=== PATIENT | male | born 1945 | race American Indian/Alaskan Native ===

== ENCOUNTER 2025-02-12 14:35 | Inpatient (IN) | payer OTHER ==
[2025-02-12] VITALS (7 sets, daily range): BP systolic 59–123; BP diastolic 48–78; O2SAT 94–96
[~2025-02-12] VITALS: Ht 167.6 cm; Wt 113.4 kg
[2025-02-12] MEDS ORDERED: ATORVASTATIN CA80 MG PO (15:21)
[2025-02-12] MEDS ORDERED: GEMFIBROZIL600 MG PO (15:22)
[2025-02-12] MEDS ORDERED: ASA81 MG PO (15:22)
[2025-02-12] MEDS ORDERED: PEPCID AC20 MG PO (15:22)
[2025-02-12] MEDS ORDERED: LIPITOR40 M1 PO (15:23)
[2025-02-12] MEDS ORDERED: TRAMADOL HCL E100 M1 PO (15:23)
[2025-02-12] MEDS ORDERED: ABATINEX680 MG PO (15:23)
--- NOTE | 2025-02-12 15:24 | NUR ---
PACIENTE DESORIENTADO TRAIDO POR JASSI HIJOS QUIENES REFIEREN QUE OSVALDO ENN LA NOCHE SALIO DE DIALISIS DEBIL Y CON DIARREA Y VOMITOS; EN LA MANANA DE HOY COMENZO CON VOMITOS. HIJOS ESPECIFICAN PACIENTE DEBIL Y PACIENTE NO RECONOCE QUIEN SON JASSI FAMILIARES. B/P DE PACIENTE [id number] MANUAL.
[2025-02-12] MEDS ORDERED: 0.9 % SODIUM CHLORIDE 1,000 ML IV STA (15:33)
[2025-02-12 16:17] LABS: BASO % 0.2 % (0.1-1.2); EOS # 0.04 (0.04-0.54); EOS % 0.4 % (0.7-7.0); LYMPH # 1.27 (1.18-3.74); LYMPH % 11.7 % (19.3-53.1); MEAN PLATELET VOLUME 10.70 fl (9.4-12.4); MONO # 1.06 (0.24-0.82); MONO % 9.7 % (4.7-12.5); NEUT # 8.23 (1.56-6.13); NEUT % 75.5 % (34.0-71.1); RED CELL DISTRIBUTION WIDTH 13.9 % (11.6-14.4)
[2025-02-12] MEDS ORDERED: NOREPINEPHRINE BITARTRATE 1 MG/ML AMPUL IV STA (16:18)
[2025-02-12 17:00] LABS: ALT/SGPT 11 U/L (12-78); AST/SGOT 8 U/L (15-37); BILIRUBIN TOTAL 0.37 mg/dL (0.3-1.2); GLOBULINA 2.1 G/DL (2.4-3.5); GLUCOSE FASTING 106 mg/dL (65-100); OSMOLALITY SERUM 301 MOSM/KG (275-295)
[2025-02-12 17:11] LABS: BUN CREA RATIO 7 (7.0-25.0); GFR 14.38
[2025-02-12 17:14] LABS: CREATININE SERUM 4.06 mg/dL (0.70-1.30)
[2025-02-12] MEDS ORDERED: CALCIUM GLUCONATE 100 MG/ML VIAL IV STA (17:15)
[2025-02-12] MEDS ORDERED: POTASSIUM CHLORIDE IN WATER 40 MEQ/100 ML PIGGYBAG IV SCH (17:30)
[2025-02-12] MEDS ORDERED: CEFTRIAXONE SODIUM 2,000 MG in 0.9 % SODIUM CHLORIDE 100 ML IV ONE (19:30)
[2025-02-12] MEDS ORDERED: CALCIUM GLUCONATE 100 MG/ML VIAL IV ONE (19:30)
[2025-02-12 19:43] LABS: COVID-19 AG NEGATIVE (NEGATIVE)
[2025-02-12] MEDS ORDERED: INSULIN LISPRO 1,000 UNIT/10 ML UNITS SUBCUTANEO PRN (22:15)
[2025-02-12] MEDS ORDERED: NOREPINEPHRINE BITARTRATE 8 MG in DEXTROSE 5 % IN WATER 250 ML IV SCH (22:15)
[2025-02-12] MEDS ORDERED: DEXTROSE 50 % IN WATER 0.5 G/ML DISP.SYRIN IV PRN (22:15)
[2025-02-12] MEDS ORDERED: ONDANSETRON HCL 4 MG in 0.9 % SODIUM CHLORIDE 50 ML IV PRN (22:15)
--- NOTE | 2025-02-12 22:27 | NUR ---
SE RECIBE PACIENTE EN LA UNIDAD DE CRITICO DESORIENTADO E HIPOTENSO. SE UBICA PACIENTE EN CAMA 2 CON BARANDAS ELEVADAS Y NIVEL MAS BAJO DE LA MISMA. SE PROCEDE A CONECTAR PACIENTE A MONITOR CARDIACO CON OXIMETRIA DE PULSO. SE PROCEDE A BOO MUESTRAS DE LABORATORIO Y A CANALIZAR PACIENTE BAJO MEDIDAS ASEPTICAS, LUIS DE EDEMA Y ERITEMA. SE REALIZA EKG AL MISMO Y VEDA ES EVALUADO POR EL DR. STOLL. SE PROCEDE A ADMINISTRAR MEDICAMENTOS MILVIA ORDEN MEDICA BAJO MEDIDAS ASEPTICAS. SE NOTIFICAN VITALES TOMADOS A DR. STOLL Y DR. MCKENNA.
[2025-02-13] VITALS (15 sets, daily range): BP systolic 60–134; BP diastolic 43–73; O2SAT 95–100
[2025-02-13] MEDS ORDERED: ACETAMINOPHEN 325 MG TABLET PO SCH
[2025-02-13 04:58] LABS: INR 1.02
[2025-02-13 05:11] LABS: ALT/SGPT 21.0 U/L (12-78); AST/SGOT 13.0 U/L (15-37); BILIRUBIN TOTAL 0.73 mg/dL (0.3-1.2); BUN CREA RATIO 6.0 (7.0-25.0); GFR 5.87; GLOBULINA 3.9 G/DL (2.4-3.5); GLUCOSE FASTING 185.0 mg/dL (65-100); OSMOLALITY SERUM 291.0 MOSM/KG (275-295); TSH 1.59 uIU/mL (0.358-3.74)
[2025-02-13 05:15] LABS: CREATININE SERUM 8.82 mg/dL (0.70-1.30)
[2025-02-13 05:20] LABS: HDL 37.0 mg/dl (40-60); VLDL 130.0 (0-39)
[2025-02-13 05:46] LABS: CHOL HDL RATIO 7.1 (0-5.0); LDL 94.0 mg/dl (0-130)
[2025-02-13 08:29] LABS: URINE APPEARANCE Turbid; URINE BILIRRUBIN Negative (NEGATIVE); URINE BLOOD Moderate; URINE COLOR Dark Yellow; URINE KETONE Trace (NEGATIVE); URINE LEUKOCYTE Small; URINE NITRATE Negative; URINE UROBILINOGEN 0.2 E.U./dl
[2025-02-13 08:30] LABS: URINE BACTERIA 180.0 uL (0.0-1933); URINE CAST 14.66 uL (0.0-1.40); URINE EPITHELIAL CELLS 115.3 uL (0.0-38.8); URINE RBC 223.0 uL (0.0-20.8); URINE WBC 33.3 uL (0.0-23.2)
[2025-02-13] MEDS ORDERED: CEFTRIAXONE SODIUM 2,000 MG in 0.9 % SODIUM CHLORIDE 100 ML IV SCH (09:00)
[2025-02-13] MEDS ORDERED: PANTOPRAZOLE SODIUM 40 MG/VIAL VIAL IV SCH (09:00)
[2025-02-13 09:07] LABS: URINE GLUCOSE 100 MG/DL (NEGATIVE); URINE PROTEIN 300 (NEGATIVE)
[2025-02-13 09:08] LABS: TYPE CELLS SQUAMOUS
[2025-02-13] MEDS ORDERED: ACETAMINOPHEN 500 MG GEL..CAP PO SCH (12:00)
[2025-02-13] MEDS ORDERED: MEROPENEM 500 MG/VIAL VIAL IV SCH (18:33)
[2025-02-14] VITALS (24 sets, daily range): BP systolic 62–139; BP diastolic 43–97; O2SAT 95–100
[2025-02-14 16:40] LABS: BASO % 0.6 % (0.1-1.2); EOS # 0.17 (0.04-0.54); EOS % 1.0 % (0.7-7.0); LYMPH # 1.84 (1.18-3.74); LYMPH % 11.3 % (19.3-53.1); MEAN PLATELET VOLUME 10.50 fl (9.4-12.4); MONO # 2.12 (0.24-0.82); NEUT # 11.39 (1.56-6.13); NEUT % 70.2 % (34.0-71.1); RED CELL DISTRIBUTION WIDTH 15.1 % (11.6-14.4)
[2025-02-14 17:20] LABS: ALT/SGPT 20.0 U/L (12-78); AST/SGOT 9.0 U/L (15-37); BILIRUBIN TOTAL 1.0 mg/dL (0.3-1.2); CKMB 3.0 NG/ML (0.5-3.6); GLOBULINA 4.1 G/DL (2.4-3.5); PHOSPHOKINASE CREATININE 103.0 U/L (39-308)
[2025-02-14 17:37] LABS: MONO % 13.1 % (4.7-12.5)
[2025-02-14 17:38] LABS: BASOPHIL MAN 1.0 %; EOSINOPHIL MAN 1.0 %; LYMPHOCYTE MAN 15.0 %; METAMYELOCYTE 1.0 %; MONOCYTE MAN 12.0 %; MYELOCYTE 1.0 %; NEUTROPHILS MAN 68.0 %
[2025-02-14 18:14] LABS: OSMOLALITY SERUM 282.0 MOSM/KG (275-295)
[2025-02-14 18:15] LABS: BUN CREA RATIO 5.0 (7.0-25.0); GFR 6.72; GLUCOSE FASTING 245.0 mg/dL (65-100); PROSTATIC SPECIFIC ANTIGEN 14.4 NG/ML (0.010-4.00)
[2025-02-14 18:16] LABS: CREATININE SERUM 7.81 mg/dL (0.70-1.30)
[2025-02-15] VITALS (22 sets, daily range): BP systolic 77–142; BP diastolic 52–76; O2SAT 92–100
[2025-02-15 06:11] LABS: BASO % 0.8 % (0.1-1.2); EOS # 0.27 (0.04-0.54); EOS % 2.2 % (0.7-7.0); LYMPH # 1.88 (1.18-3.74); LYMPH % 15.2 % (19.3-53.1); MEAN PLATELET VOLUME 11.00 fl (9.4-12.4); MONO # 2.04 (0.24-0.82); NEUT # 7.58 (1.56-6.13); NEUT % 61.3 % (34.0-71.1); RED CELL DISTRIBUTION WIDTH 14.8 % (11.6-14.4)
[2025-02-15 07:12] LABS: MONO % 16.5 % (4.7-12.5)
[2025-02-15 07:13] LABS: EOSINOPHIL MAN 1.0 %; LYMPHOCYTE MAN 17.0 %; MONOCYTE MAN 16.0 %; NEUTROPHILS MAN 66.0 %
[2025-02-15 10:14] LABS: CORTISOL 16.38 ug/dl
[2025-02-15] MEDS ORDERED: NOREPINEPHRINE BITARTRATE 1 MG/ML AMPUL IV ONE (14:43)
[2025-02-15] MEDS ORDERED: NOREPINEPHRINE BITARTRATE 4 MG in DEXTROSE 5 % IN WATER 250 ML IV SCH (22:15)
[2025-02-15] MEDS ORDERED: NOREPINEPHRINE BITARTRATE 8 MG in DEXTROSE 5 % IN WATER 250 ML IV SCH (22:15)
[2025-02-16] VITALS (22 sets, daily range): BP systolic 92–141; BP diastolic 47–73; O2SAT 95–100
[2025-02-16] MEDS ORDERED: INSULIN NPH HUM/REG INSULIN HM 1,000 UNIT/10 ML UNITS SUBCUTANEO SCH (08:00)
[2025-02-17] VITALS (11 sets, daily range): BP systolic 85–118; BP diastolic 50–76; O2SAT 96–100
[2025-02-17 06:46] LABS: BASO % 0.6 % (0.1-1.2); EOS # 0.28 (0.04-0.54); EOS % 2.9 % (0.7-7.0); LYMPH # 1.32 (1.18-3.74); LYMPH % 13.7 % (19.3-53.1); MEAN PLATELET VOLUME 10.60 fl (9.4-12.4); MONO # 1.10 (0.24-0.82); MONO % 11.4 % (4.7-12.5); NEUT # 6.43 (1.56-6.13); NEUT % 66.9 % (34.0-71.1); RED CELL DISTRIBUTION WIDTH 14.6 % (11.6-14.4)
[2025-02-17 07:16] LABS: ALT/SGPT 20.0 U/L (12-78); AST/SGOT 11.0 U/L (15-37); BILIRUBIN TOTAL 0.71 mg/dL (0.3-1.2); GLOBULINA 3.3 G/DL (2.4-3.5); GLUCOSE FASTING 124.0 mg/dL (65-100); OSMOLALITY SERUM 280.0 MOSM/KG (275-295)
[2025-02-17 07:30] LABS: BUN CREA RATIO 5.0 (7.0-25.0); GFR 5.65
[2025-02-17 07:31] LABS: CREATININE SERUM 9.08 mg/dL (0.70-1.30)
[2025-02-17 10:58] LABS: BAND MAN 7.0 %; EOSINOPHIL MAN 5.0 %; LYMPHOCYTE MAN 9.0 %; METAMYELOCYTE 3.0 %; MONOCYTE MAN 4.0 %; MYELOCYTE 1.0 %; NEUTROPHILS MAN 67.0 %
[2025-02-17 11:00] LABS: BLAST MAN 2.0 %
[2025-02-18] VITALS (7 sets, daily range): BP systolic 92–122; BP diastolic 50–72; O2SAT 91–99
[2025-02-18] MEDS ORDERED: INSULIN NPH HUM/REG INSULIN HM 1,000 UNIT/10 ML UNITS SUBCUTANEO SCH (08:00)
[2025-02-18] MEDS ORDERED: DIATRIZOATE MEGLUMINE, SODIUM 30 ML BOTTLE PO NR (11:45)
[2025-02-18 20:57] LABS: BASO % 0.6 % (0.1-1.2); EOS # 0.29 (0.04-0.54); EOS % 2.9 % (0.7-7.0); LYMPH # 1.29 (1.18-3.74); LYMPH % 13.0 % (19.3-53.1); MEAN PLATELET VOLUME 10.70 fl (9.4-12.4); MONO # 1.13 (0.24-0.82); MONO % 11.4 % (4.7-12.5); NEUT # 6.76 (1.56-6.13); NEUT % 68.2 % (34.0-71.1); RED CELL DISTRIBUTION WIDTH 14.4 % (11.6-14.4)
[2025-02-18 21:00] LABS: ERYTHROCYTE SEDIMENTATION RATE 99 mm/hr (0-20)
[2025-02-18 21:37] LABS: ALT/SGPT 19.0 U/L (12-78); AST/SGOT 15.0 U/L (15-37); BILIRUBIN TOTAL 0.47 mg/dL (0.3-1.2); BUN CREA RATIO 6.0 (7.0-25.0); GFR 8.89; GLOBULINA 3.3 G/DL (2.4-3.5); GLUCOSE FASTING 169.0 mg/dL (65-100); LDH 182.0 U/L (87-241); OSMOLALITY SERUM 279.0 MOSM/KG (275-295)
[2025-02-18 21:46] LABS: CREATININE SERUM 6.13 mg/dL (0.70-1.30)
[2025-02-18 21:47] LABS: INR 0.97
[2025-02-19 04:00] VITALS: BP 137/58; O2SAT 98
[2025-02-19 07:41] VITALS: BP 93/62; O2SAT 100
[2025-02-19 14:29] VITALS: O2SAT 100
[2025-02-19 16:33] VITALS: O2SAT 91
[2025-02-19 18:25] VITALS: BP 111/66
[2025-02-19 19:01] VITALS: O2SAT 97
[2025-02-20] VITALS (7 sets, daily range): BP systolic 100–106; BP diastolic 55–69; O2SAT 90–99
[2025-02-21] VITALS (7 sets, daily range): BP systolic 105–129; BP diastolic 63–75; O2SAT 90–99
[2025-02-21 14:48] LABS: URINE APPEARANCE Cloudy; URINE BILIRRUBIN Negative (NEGATIVE); URINE BLOOD Negative; URINE COLOR Yellow; URINE GLUCOSE Negative (NEGATIVE); URINE KETONE Trace (NEGATIVE); URINE LEUKOCYTE Small; URINE NITRATE Negative; URINE UROBILINOGEN 0.2 E.U./dl
[2025-02-21 14:51] LABS: URINE BACTERIA 177.5 uL (0.0-1933); URINE EPITHELIAL CELLS 10.6 uL (0.0-38.8); URINE RBC 1119.6 uL (0.0-20.8); URINE WBC 87.9 uL (0.0-23.2)
[2025-02-21 15:21] LABS: URINE CAST 0.87 uL (0.0-1.40); URINE PROTEIN 100 (NEGATIVE); URINE YEAST MANY /hpf
[2025-02-22] VITALS (10 sets, daily range): BP systolic 115–130; BP diastolic 65–73; O2SAT 90–98
[2025-02-22] MEDS ORDERED: FLUCONAZOLE IN NACL,ISO-OSM 200 MG/100 ML PIGGYBAG IV NR (16:00)
[2025-02-22] MEDS ORDERED: MIDAZOLAM HCL 2 MG/2 ML VIAL IV PUSH ONE (17:00)
[2025-02-22] MEDS ORDERED: fentaNYL CITRATE 50 MCG/ML AMPUL IV PUSH ONE (17:00)
[2025-02-23 02:47] VITALS: O2SAT 96
[2025-02-23 02:52] VITALS: BP 129/72; O2SAT 98
[2025-02-23 06:14] LABS: BASO % 0.7 % (0.1-1.2); EOS # 0.26 (0.04-0.54); EOS % 3.0 % (0.7-7.0); LYMPH # 1.37 (1.18-3.74); LYMPH % 15.6 % (19.3-53.1); MEAN PLATELET VOLUME 10.30 fl (9.4-12.4); MONO # 1.03 (0.24-0.82); MONO % 11.7 % (4.7-12.5); NEUT # 5.93 (1.56-6.13); NEUT % 67.3 % (34.0-71.1); RED CELL DISTRIBUTION WIDTH 14.1 % (11.6-14.4)
[2025-02-23 06:27] LABS: INR 0.99
[2025-02-23 07:32] LABS: ALT/SGPT 15.0 U/L (12-78); AST/SGOT 11.0 U/L (15-37); BILIRUBIN TOTAL 0.53 mg/dL (0.3-1.2); GLOBULINA 3.1 G/DL (2.4-3.5); GLUCOSE FASTING 101.0 mg/dL (65-100); OSMOLALITY SERUM 300.0 MOSM/KG (275-295)
[2025-02-23 08:17] LABS: BUN CREA RATIO 6.0 (7.0-25.0); GFR 3.91
[2025-02-23 08:18] LABS: CREATININE SERUM 12.5 mg/dL (0.70-1.30)
[2025-02-23 08:51] VITALS: BP 122/73; O2SAT 95
[2025-02-23 09:38] VITALS: O2SAT 93
== END 2025-02-23 16:42 | disposition home or self-care (01) | DRG 698 ==
LOC: ER 14:35 → MEDJ 22:51 → EDBD 22:51 → ICU-2 22:51 → ICU 02-14 21:10 → MEDJ 02-19 14:05
PROVIDERS: General Practice; Internal Medicine; Internal Medicine Infectious Disease; Internal Medicine Nephrology; ADMIT Internal Medicine; ATTEND Internal Medicine
PROC: BW28ZZZ Computerized Tomography (CT Scan) of Head (ICD-10-PCS; 2025-02-12)
PROC: BW21ZZZ Computerized Tomography (CT Scan) of Abdomen and Pelvis (ICD-10-PCS; 2025-02-12)
PROC: BT43ZZZ Ultrasonography of Bilateral Kidneys (ICD-10-PCS; 2025-02-13)
PROC: 30243N1 Transfusion of Nonautologous Red Blood Cells into Central Vein, Percutaneous Approach (ICD-10-PCS; 2025-02-13)
PROC: 02HV33Z Insertion of Infusion Device into Superior Vena Cava, Percutaneous Approach (ICD-10-PCS; principal; 2025-02-14)
PROC: 5A1D70Z Performance of Urinary Filtration, Intermittent, Less than 6 Hours Per Day (ICD-10-PCS; 2025-02-14)
PROC: B24BYZZ Ultrasonography of Heart with Aorta using Other Contrast (ICD-10-PCS; 2025-02-14)
PROC: 5A1D70Z Performance of Urinary Filtration, Intermittent, Less than 6 Hours Per Day (ICD-10-PCS; 2025-02-16)
PROC: 5A1D70Z Performance of Urinary Filtration, Intermittent, Less than 6 Hours Per Day (ICD-10-PCS; 2025-02-18)
PROC: BW21YZZ Computerized Tomography (CT Scan) of Abdomen and Pelvis using Other Contrast (ICD-10-PCS; 2025-02-18)
PROC: 4A12X4Z Monitoring of Cardiac Electrical Activity, External Approach (ICD-10-PCS; 2025-02-19)
PROC: 0TB13ZX Excision of Left Kidney, Percutaneous Approach, Diagnostic (ICD-10-PCS; 2025-02-22)
PROC: 0HBBXZZ Excision of Right Upper Arm Skin, External Approach (ICD-10-PCS; 2025-02-23)
DX: N28.1 Cyst of kidney, acquired (principal); A41.9 Sepsis, unspecified organism; N18.6 End stage renal disease; N39.0 Urinary tract infection, site not specified; N15.1 Renal and perinephric abscess; I10 Essential (primary) hypertension; D64.9 Anemia, unspecified; E11.9 Type 2 diabetes mellitus without complications; Z79.4 Long term (current) use of insulin; I95.9 Hypotension, unspecified